=== PATIENT | female | born 1990 | race African-American/Black ===

== ENCOUNTER 2024-11-01 18:51 | Emergency (ER) | payer OTHER ==
[2024-11-01 19:55] LABS: CAUTI Indications for Culture Pelvic or flank pain; Glucose, Urine (Dipstick) Normal (Negative); Leukocyte 500 Leu/uL (Negative); Protein, Urine (Dipstick) 50 mg/dL (Neg-Trace); RBC/HPF Greater than 50 HPF (0-3); Specific Gravity, Urine 1.016 (1.002-1.036); WBC/HPF Greater than 50 HPF (0-3)
[2024-11-01 20:05] LABS: Pregnancy Test - Urine (BHCG) Negative (Negative); Pregu Control Background? CLEAR/WHITE (CLR/WHITE); Pregu Control Bar Appear? YES (CONTROL BAR)
[2024-11-01 20:17] LABS: Bacteria/HPF 4+ HPF (None Seen)
[2024-11-01 20:18] LABS: Urine Culture Reflex Yes Yes
== END 2024-11-01 20:37 | disposition home or self-care (01) ==
LOC: ERS 18:51
DX: N30.00 Acute cystitis without hematuria (principal); E11.9 Type 2 diabetes mellitus without complications
CPT/HCPCS: 81001; 81025; 87077; 87086; 87186; 99283

== ENCOUNTER 2025-01-27 09:39 | Emergency (ER) | payer OTHER, SELFPAY | END 2025-01-27 10:18 | disposition home or self-care (01) | LOC: ERS 09:39 | DX: H92.01 Otalgia, right ear (principal) | CPT/HCPCS: 99282 ==

== ENCOUNTER 2025-02-04 00:33 | Emergency (ER) | payer SELFPAY | END 2025-02-04 02:41 | LOC: ERS 00:33 | DX: Z53.21 Procedure and treatment not carried out due to patient leaving prior to being seen by health care provider (principal) | CPT/HCPCS: 36416 ==